=== PATIENT | male | born 1935 | race Caucasian/White ===

== ENCOUNTER → 2017-02-26 | Outpatient (CLI) | payer MEDICARE, BC ==
[~2017-02-26] MED LIST: ALDACTONE PO; AMLODIPINE BESY10 MG PO; ASPIRIN81 M1 PO; ASPIRIN81 M2 PO; ASPIRINEC PO; ATENOLOL PO; BREO ELLIPTA 21 EACH; CARDURA PO; COUMADIN10 MG PO; COUMADIN5 MG PO; DICLOFENAC PO; FUROSEMIDE40 MG PO; HYDRALAZINE HCL50 MG PO; IMDUR-ER60 M1 PO; LASIX PO; LISINOPRIL20 MG PO; LORTAB 7.5-5001 TAB PO; LOZOL PO; METOPROLOL TAR25 MG; NEURONTIN300 MG PO; NORVASC PO; OMEPRAZOLE40 M1 PO; PHENERGAN PO; PRAVACHOL PO; PRAVASTATIN SOD80 MG PO; PROAIR HFA8.5 GM INH; TICLID250 MG PO; TOPROL XL PO; VITAMIN B122500 MCG; WARFARIN SODIUM10 M1 PO; ZETIA PO; ZOLOFT PO; ZOLOFT100 MG PO
--- NOTE | ~2017-02-26 | CR63 ---
[facility] A Service of [facility] & [facility] RADIOLOGY TEXT RESULTS PATIENT: JUANPABLO ALFARO LOCATION: [facility] : 35 UNIT #: [id number] AGE: [address]: Tyler Jacobsen MD SEX: M ORDER DR: [id number] [facility] [address] [place], [place] [address] [id number] O MR#: [id number] Acc #: [id number] NAME: JUANPABLO ALFARO : 1935 SEX: M STUDY DATE/TIME: 02/26/2017 8:06 UNIT: [facility] ROOM: STUDY DESCRIPTION: CR Chest 2 View Attending Physician: Tyler Jacobsen M.D. Referring Physician: Tyler Jacobsen M.D. Ordering Physician: Tlyer Jacobsen M.D. Primary Care Physician: Keyla Lira M.D. MEDICAL IMAGING REPORT This report is preliminary unless electronic signature is present EXAM Chest PA and lateral, 02/26/2017. COMPARISON STUDY 06/18/2016 HISTORY Shortness of breath for 3 to 4 weeks. FINDINGS PA and lateral views of the chest are obtained. Heart size is normal. Postop changes of sternotomy and transvenous pacemaker placement. There is infiltrate in the left lower lobe and this is best seen on the lateral view. Lungs otherwise are clear. CONCLUSION 1. Status post sternotomy and transvenous pacemaker placement. 2. New left lower lobe infiltrate again best seen on the lateral chest radiograph. Suggest followup chest radiographs until complete clearing. Dictated by... Damian Fisher M.D. THIS IS AN ELECTRONICALLY VERIFIED REPORT Damian Fisher M.D. at 03/08/2017 2:59 PM SUZIE/vanessa TD: 02/26/2017 18:43 JOB #: [id number] MEDICAL IMAGING REPORT Page 1 of 1 COPY
[2017-02-26 08:25] LABS: BUN/CREATININE RATIO 23.63; CREATININE SERUM 1.1 mg/dL (0.6-1.4); GLOM FILT RATE Estimated 62.2 mL/min (>60); POTASSIUM 4.1 mmol/L (3.5-5.1)
== END | disposition home or self-care (01) ==
LOC: CLAB 07:14
PROVIDERS: Internal Medicine Cardiovascular Disease
DX: R06.02 Shortness of breath (principal); R60.9 Edema, unspecified; R91.8 Other nonspecific abnormal finding of lung field; Z95.0 Presence of cardiac pacemaker; Z98.890 Other specified postprocedural states
CPT/HCPCS: 36415; 71020; 80048

== ENCOUNTER → 2017-03-16 | Outpatient (CLI) | payer MEDICARE, BC ==
--- NOTE | ~2017-03-16 | CR63 ---
[facility] A Service of [facility] & [facility] RADIOLOGY TEXT RESULTS PATIENT: JUANPABLO ALFARO LOCATION: [facility] : 35 UNIT #: [id number] AGE: [address]: Keyal Lira MD SEX: M ORDER DR: [id number] [facility] [address] [place], [place] [address] [id number] O MR#: [id number] Acc #: [id number] NAME: JUANPABLO ALFARO : 1935 SEX: M STUDY DATE/TIME: 03/16/2017 8:56 UNIT: [facility] ROOM: STUDY DESCRIPTION: CR Chest 2 View Attending Physician: Keyla Lira M.D. Referring Physician: Keyla Lira M.D. Ordering Physician: Keyla Lira M.D. Primary Care Physician: Keyla Lira M.D. MEDICAL IMAGING REPORT This report is preliminary unless electronic signature is present EXAM Chest x-ray 03/16 INDICATIONS Left lower lobe pneumonia. Shortness of air and cough for 10-12 days. Former smoker. FINDINGS PA and lateral views of the chest are compared with 02/26/2017. Old thoracic compression deformities are stable. There is improved but persistent infiltrate or atelectasis in the left lower lobe. Lungs are otherwise unchanged and clear. No pneumothorax. Cardiomegaly stable. IMPRESSION Improved but persistent left lower lobe infiltrate or atelectasis. Dictated by... Vinh Chery Jr., M.D. THIS IS AN ELECTRONICALLY VERIFIED REPORT Vinh Chery Jr., M.D. at 03/17/2017 8:28 AM KAMILA/rossi TD: 03/16/2017 20:47 JOB #: [id number] MEDICAL IMAGING REPORT Page 1 of 1 COPY
== END | disposition home or self-care (01) ==
LOC: CRAD 08:35
DX: J18.1 Lobar pneumonia, unspecified organism (principal)
CPT/HCPCS: 71020

== ENCOUNTER → 2017-03-25 | Outpatient (CLI) | payer MEDICARE, BC ==
--- NOTE | ~2017-03-25 | CR63 ---
[facility] A Service of [facility] & [facility] RADIOLOGY TEXT RESULTS PATIENT: JUANPABLO ALFARO LOCATION: [facility] : 35 UNIT #: [id number] AGE: [address]: Keyla Lira MD SEX: M ORDER DR: [id number] [facility] [address] [place], [place] [address] [id number] O MR#: [id number] Acc #: [id number] NAME: JUANPABLO ALFARO. : 1935 SEX: M STUDY DATE/TIME: 03/25/2017 10:56 UNIT: [facility] ROOM: STUDY DESCRIPTION: CR Chest 2 View Attending Physician: Keyla Lira M.D. Referring Physician: Keyla Lira M.D. Ordering Physician: Keyla Lira M.D. Primary Care Physician: Keyla Lria M.D. MEDICAL IMAGING REPORT This report is preliminary unless electronic signature is present EXAM Chest, PA and lateral, 03/25/2017. HISTORY Follow up left lower lobe pneumonia for 3 weeks, cough, chest congestion, COPD exacerbation and hypertension. FINDINGS The heart is enlarged but stable compared with 03/16/2017, status post median sternotomy. Cardiac pacemaker is unchanged. The lungs are clear. There are no pleural effusions. IMPRESSION Mild cardiomegaly. No active pulmonary disease. Dictated by... Nikolas Lassiter M.D. THIS IS AN ELECTRONICALLY VERIFIED REPORT Nikolas Lassiter M.D. at 03/26/2017 10:26 AM TAYLER/roderick TD: 03/25/2017 22:09 JOB #: [id number] MEDICAL IMAGING REPORT Page 1 of 1 COPY
== END | disposition home or self-care (01) ==
LOC: CRAD 10:25
DX: J18.1 Lobar pneumonia, unspecified organism (principal); I51.7 Cardiomegaly
CPT/HCPCS: 71020

== ENCOUNTER → 2017-03-29 | Outpatient (CLI) | payer MEDICARE, BC | END | disposition home or self-care (01) | LOC: CRAD 10:00 | DX: R13.10 Dysphagia, unspecified (principal); R05 Cough | CPT/HCPCS: 74230; 92611; G8996-GN; G8997-GN; G8998-GN ==